=== PATIENT | male | born 1950 | race Hispanic/Latino ===

== ENCOUNTER 2020-03-30 07:04 | Inpatient (IN) | payer BC, MEDICARE ==
[2020-03-30] VITALS (13 sets, daily range): BP systolic 109–141; BP diastolic 54–114; PULSE 70–98; RESP 12–22; TEMP 98.6–99.1
[~2020-03-30] VITALS: Ht 170.2 cm; Wt 89.5 kg
[2020-03-30] MEDS ORDERED: ASPIRIN 325 MG TABLET ONE (08:01)
[2020-03-30] MEDS ORDERED: NITROGLYCERIN 1GM/1 INCH PACKET TD ONE (10:13)
[2020-03-30] MEDS ORDERED: NITROGLYCERIN 50 MG/D5% WATER 1 BOT ONE (10:31)
[2020-03-30] MEDS ORDERED: NITROGLYCERIN 0.4 MG SL TAB SL PRN (10:45)
[2020-03-30] MEDS ORDERED: ACETAMINOPHEN 325 MG TAB PO PRN ×2 (10:45)
[2020-03-30] MEDS ORDERED: ONDANSETRON HCL 4 MG/2 ML VIAL IVP PRN ×2 (10:45→12:30)
[2020-03-30] MEDS ORDERED: MORPHINE SULFATE 4 MG/1ML SYG IM PRN (10:45)
[2020-03-30] MEDS ORDERED: MORPHINE SULFATE 2 MG/ML 1ML SYG IVP PRN (10:45)
[2020-03-30] MEDS ORDERED: HEPARIN SODIUM 5000UNIT/ML 1ML VIAL ONE (10:55)
[2020-03-30] MEDS ORDERED: CLOPIDOGREL BISULFATE 300 MG TAB ONE (10:55)
[2020-03-30] MEDS ORDERED: NITROGLYCERIN 2 MG/VIAL VIAL IV ONE ×2 (11:03→11:45)
[2020-03-30] MEDS ORDERED: IOHEXOL-350 50ML VIAL IV ONE (11:03)
[2020-03-30] MEDS ORDERED: HEPARIN SODIUM 1000UNIT/ML 10ML VIAL ONE (11:03)
[2020-03-30] MEDS ORDERED: IOHEXOL 350 MG/ML 100ML INFUS..BTL IV ONE (11:03)
[2020-03-30] MEDS ORDERED: LIDOCAINE HCL 2% 20ML ONE (11:03)
[2020-03-30] MEDS ORDERED: NITROGLYCERIN 50 MG/D5% WATER 1 BOT IV PRN (12:30)
[2020-03-30] MEDS ORDERED: ACETAMINOPHEN-CODEINE 300/30MG TAB PO PRN ×2 (12:30)
[2020-03-30] MEDS ORDERED: TEMAZEPAM 30 MG CAP PO PRN (12:30)
[2020-03-30] MEDS ORDERED: METOPROLOL TARTRATE 25 MG TAB PO SCH (21:00)
[2020-03-31] VITALS (11 sets, daily range): BP systolic 103–136; BP diastolic 42–72; PULSE 64–84; RESP 10–21; TEMP 98.5–98.9
--- NOTE | 2020-03-31 07:40 | NUR ---
TRANSFER FROM ICU RECEIVED PT FROM [facility], AMBULATING FROM WHEELCHAIR TO BED, GAIT STEADY AND STRONG WITH STAND BY ASSIST, RT GROIN SOFT NONTENDER WITH NO OOZING OR HEMATOMA PRESENT. DP/PT PULSES PALPABLE. CALL LIGHT WITHIN REACH.
[2020-03-31] MEDS: ATORVASTATIN CALCIUM 40 MG TABLET PO SCH (08:07)
[2020-03-31] MEDS: CARVEDILOL 6.25 MG TABLET PO SCH ×2 (08:07→22:20)
[2020-03-31] MEDS: FUROSEMIDE 40 MG TABLET PO SCH (08:07)
[2020-03-31] MEDS: CLOPIDOGREL BISULFATE 75 MG TAB PO SCH (08:07)
[2020-03-31] MEDS: PANTOPRAZOLE SODIUM 40 MG TABLET.DR PO SCH (08:08)
[2020-03-31] MEDS: ASPIRIN 81MG TAB.CHEW PO SCH (08:08)
[2020-03-31] MEDS ORDERED: ASPIRIN 325MG EC TAB 325 MG TABLET.DR PO SCH (09:00)
--- NOTE | 2020-03-31 09:13 | NUR ---
CHART CHECK COMPLETED. Pt IS A 70 Y.O. MALE ADMITTED SECONDARY TO STEMI. NO PAST MEDICAL HISTORY REPORTED AT THIS TIME. SKILLED SPEECH THERAPY INTERVENTION IS NOT WARRANTED. -NEW ADMISSION CHART CHECK COMPLETED. Addendum: 03/31/20 at 0915 by MINA CORTES, [facility] Amended: Links added.
--- NOTE | 2020-03-31 10:17 | NUR ---
Morning rounds Patient assessed in am and is doing well no chest pain. Nitro drip stopped at 0700. Patient to be downgraded to PCCU. Assessed Right femoral site as it was accessed for heart cath and stent placement. Site is clean dry intact nontender to palpation. Patient up with assistance to bathroom.
--- NOTE | 2020-03-31 11:43 | NUR ---
Report Gave report to Sebas TORO patient plan of care reviewed. Patient R femoral site clean dry intact. Patient walked to restroom today with minimal assist. Stable at time of transfer to Room 403.
[2020-03-31] MEDS ORDERED: [UNRECOGNIZED DRUG - OTHER] IV ONE (12:00)
--- NOTE | 2020-03-31 14:36 | NUR ---
cm note met with pt and states resides at home with pt and states resides athome with spouse, independent with ambulation and adls. no dme. dc plan is back to home at [facility] no dc needs. Addendum: 03/31/20 at 1438 by SANDRA KATZ CM Amended: Links added.
[2020-04-01] VITALS: BP 120/71; PULSE 70; RESP 18; TEMP 98.6
[2020-04-01 04:00] VITALS: BP 108/66; PULSE 77; RESP 18; TEMP 98.2
[2020-04-01 07:00] VITALS: BP 99/60; PULSE 75; RESP 20; TEMP 98.1
--- NOTE | 2020-04-01 07:40 | NUR ---
ASSESSMENT ENCOUNTERED PT A&OX3, CALM COOPERATIVE AND DOES NOT APPEAR TO BE IN ANY DISTRESS NOR ANY NEURO DEFICITS PRESENT. PT DENIES PAIN, SOB, NAUSEA. PT IS AMBULATORY, GAIT STEADY AND STRONG WITH STAND BY ASSIST. RT GROIN SOFT NONTENDER WITH NO OOZING OR HEMATOMA PRESENT. DP/PT PULSES PALPABLE. CALL LIGHT WITHIN REACH.
[2020-04-01] MEDS: ATORVASTATIN CALCIUM 40 MG TABLET PO SCH (08:30)
[2020-04-01] MEDS: CLOPIDOGREL BISULFATE 75 MG TAB PO SCH (08:31)
[2020-04-01] MEDS: CARVEDILOL 6.25 MG TABLET PO SCH ×2 (08:35→17:33)
[2020-04-01] MEDS: FUROSEMIDE 40 MG TABLET PO SCH (08:36)
[2020-04-01] MEDS: ASPIRIN 81MG TAB.CHEW PO SCH (08:36)
[2020-04-01] MEDS: PANTOPRAZOLE SODIUM 40 MG TABLET.DR PO SCH (08:36)
[2020-04-01 11:00] VITALS: BP 119/69; PULSE 71; RESP 20; TEMP 97.5
[2020-04-01 15:30] VITALS: BP 119/66; PULSE 81; RESP 20; TEMP 98.1
[2020-04-01 17:33] VITALS: BP 119/66
--- NOTE | 2020-04-01 18:18 | NUR ---
DISCHARGE INSTRUCTIONS GIVEN, PIV REMOVED AND INTACT, DISCHARGED HOME TO FAMILY VEHICLE VIA WHEELCHAIR.
== END 2020-04-01 17:55 | disposition home or self-care (01) | DRG 247 ==
LOC: EDH 07:04 → EDHIP 10:40 → 2CH 12:31 → 4AH 03-31 11:30
PROVIDERS: ADMIT Hospitalist; ATTEND Hospitalist
PROC: 4A023N7 Measurement of Cardiac Sampling and Pressure, Left Heart, Percutaneous Approach (ICD-10-PCS; principal; 2020-03-30)
PROC: 027035Z Dilation of Coronary Artery, One Artery with Two Drug-eluting Intraluminal Devices, Percutaneous Approach (ICD-10-PCS; 2020-03-30)
PROC: B2111ZZ Fluoroscopy of Multiple Coronary Arteries using Low Osmolar Contrast (ICD-10-PCS; 2020-03-30)
DX: I21.09 ST elevation (STEMI) myocardial infarction involving other coronary artery of anterior wall (principal); I25.10 Atherosclerotic heart disease of native coronary artery without angina pectoris; I24.9 Acute ischemic heart disease, unspecified; I25.2 Old myocardial infarction; Z82.49 Family history of ischemic heart disease and other diseases of the circulatory system

== ENCOUNTER → 2020-06-23 | Outpatient (CLI) | payer OTHER, MEDICARE ==
[~2020-06-23] MED LIST: ASPI-1005 PO; ATOR40TA69 PO; CARV6.2579 PO; CLOP75TA14 PO; FAMO20TA8 PO; FURO40TA7 PO
== END | disposition home or self-care (01) ==
LOC: SHCH 08:36
PROVIDERS: ATTEND Internal Medicine Cardiovascular Disease
DX: I25.10 Atherosclerotic heart disease of native coronary artery without angina pectoris (principal)
CPT/HCPCS: 93306

== ENCOUNTER → 2023-12-31 | Outpatient (CLI) | payer OTHER ==
[~2023-12-31] MED LIST changes: +CARV-159 PO; -CARV6.2579 PO; +CLOP-31 PO; -CLOP75TA14 PO
== END | disposition home or self-care (01) ==
LOC: SHCH 15:10
PROVIDERS: ATTEND Internal Medicine Cardiovascular Disease
DX: I65.23 Occlusion and stenosis of bilateral carotid arteries (principal)
CPT/HCPCS: 93880